=== PATIENT | female | born 1995 ===

== ENCOUNTER 2025-07-01 14:05 | Emergency (ER) | payer BC ==
[2025-07-01] MEDS: EPINEPHrine 1 MG/ML SDV IM ONE (14:10)
[2025-07-01] MEDS: methylPREDNISolone Sodium Succinate 125 MG/2 ML SDV IVPUSH ONE (14:14)
[2025-07-01] MEDS: diphenhydrAMINE 50 MG/ML SDV IVPUSH ONE (14:15)
[2025-07-01] MEDS ORDERED: Sodium Chloride 0.9% 10 ML Syringe FLUSH PRN (14:20)
[2025-07-01 14:22] VITALS: BP 153/91; PULSE 120
== END 2025-07-01 15:12 | disposition home or self-care (01) ==
LOC: FB.ED 14:05
DX: T78.2XXA Anaphylactic shock, unspecified, initial encounter (principal); Z79.899 Other long term (current) drug therapy
CPT/HCPCS: 96372; 96374; 96375; 99283; J0169; J1200; J2919